=== PATIENT | female | born 1965 | race African-American/Black ===

== ENCOUNTER 2022-03-11 11:06 | Emergency (ER) | payer MEDICAID ==
[~2022-03-11] VITALS: Ht 160 cm; Wt 88.0 kg
[2022-03-11 13:11] VITALS: BP 104/75
== END 2022-03-11 13:20 | disposition home or self-care (01) ==
LOC: ER 11:08
DX: I10 Essential (primary) hypertension (principal)
CPT/HCPCS: 93005